=== PATIENT | female | born 1950 | race Caucasian/White ===

== ENCOUNTER 2016-05-09 15:44 | Emergency (ER) | payer MEDICARE ==
[~2016-05-09] VITALS: Ht 157.5 cm; Wt 72.6 kg
[~2016-05-09 15:44] MED LIST: HYDR-2666 PO
--- NOTE | 2016-05-09 16:27 | RAD ---
Indication injury, pain. AP oblique and lateral views of the left ankle were obtained. There is considerable soft tissue swelling. There is a tiny avulsion off the tip of the lateral malleolus. No additional bony finding is seen.
--- NOTE | 2016-05-09 18:30 | PHYS DOC ---
Past Medical History Past Medical History: No Pertinent History Past Surgical History: No Surgical History Additional Past Surgical Histo: bilateral knee surgeries Additional Information: Nonsmoker. Alcohol Use: Rarely Drug Use: None Adult General Chief Complaint Chief Complaint: ANKLE PROBLEM HPI HPI Patient is a 66 year old female who presents with left ankle pain after injury at 1400 today. Patient states that she was cleaning leaves from her pool cover when she slipped and twisted her ankle. She is pain, swelling, and bruising over the lateral malleolus. She denies numbness or tingling. She denies any other injuries, including head injury or loss of consciousness. She has been able to bear some weight since the injury. She took a [place] 10/ at 1500. Her PCP is Dr. Avel Gonzalez. She has seen an orthopedic doctor at [facility]. Review of Systems Review of Systems Constitutional: Denies fever or chills. [] Musculoskeletal: Denies back pain. Reports left ankle pain and swelling. Integument: Denies rash or skin lesions. Reports left ankle bruising. Neurologic: Denies headache, focal weakness or sensory changes. Denies loss of consciousness. Allergies Allergies Allergies Coded Allergies Type Severity Reaction Last Updated Verified No Known Drug Allergies 01/03/16 No Physical Exam Physical Exam Constitutional: Well developed, well nourished, no acute distress, non-toxic appearance. [] HENT: Normocephalic, atraumatic, oropharynx moist. [] Eyes: PERRLA, EOMI, conjunctiva normal, no discharge. [] Skin: Warm, dry, no erythema, no rash. There is moderate ecchymosis and swelling over the left lateral malleolus. Extremities: Left lateral malleolus tenderness, ROM mildly decreased due to pain , moderate left lateral malleolus edema. 2+ DP and PT pulses. Less than 2 second capillary refill in the toes. Light touch sensation intact distally in the toes. There is no tenderness over the base of the fifth metatarsal or proximal fibula. Neurologic: Alert and oriented X 3, normal motor function, normal sensory function, no focal deficits noted. [] Psychologic: Affect normal, judgement normal, mood normal. [] EKG EKG [] Radiology/Procedures Radiology/Procedures REASON: pain and injury PROCEDURE: ANKLE LEFT 3V Indication injury, pain. AP oblique and lateral views of the left ankle were obtained. There is considerable soft tissue swelling. There is a tiny avulsion off the tip of the lateral malleolus. No additional bony finding is seen. Course & Med Decision Making Course & Med Decision Making Pertinent Labs and Imaging studies reviewed. (See chart for details) Patient presents with left ankle pain after injury. On exam, she has tenderness , swelling, and ecchymosis over the left lateral malleolus. X-ray shows a small avulsion fracture at the tip of the lateral malleolus. An Ortho-Glass stirrup splint was applied by fork lift technician. I reexamined the patient after splint application. She remains neurovascularly intact without evidence of compartment syndrome. She has a walker and crutches at home for assistance with ambulation. She is discharged home with prescription for [place]. She is given contact information for orthopedics for follow-up. Return precautions were discussed. She verbalizes understanding and agrees with plan. Dragon Disclaimer Dragon Disclaimer This electronic medical record was generated, in whole or in part, using a voice recognition dictation system. Departure Departure Impression: Primary Impression: Avulsion fracture of lateral malleolus of left fibula Disposition: 01 HOME, SELF-CARE Condition: STABLE Referrals: NICOLE GONZALEZ (PCP) TITO HARMON MD Patient Instructions: Ankle Fracture, [id number], Splint Care, [id number] Additional Instructions: Your x-ray shows a small chip fracture, or break, on the outer side of your left ankle. Please take the prescribed pain medication as directed. Do not drive or operate heavy machinery while taking pain medication. You were placed in a splint to immobilize your ankle. Please leave the splint on until follow-up with an orthopedic doctor. The splint must stay dry in order to keep it shape. Please follow-up with the orthopedic doctor listed below or another orthopedic doctor of your choice in the next 3-4 days. Return to the emergency department if you have any new or concerning symptoms. Scripts Hydrocodone/Apap 5-325 (A[place] 5-325 Tablet)1 Each Tablet1 Tab PO PRN Q6HRS PRN PAIN #20 TAB Prov:WILLIAM RIVERS 05/09/16 Problem Qualifiers Primary Impression: Avulsion fracture of lateral malleolus of left fibula Encounter type: initial encounter Fracture type: closed Qualified Code: S82.62XA - Displaced fracture of lateral malleolus of left fibula, initial encounter for closed fracture WILLIAM RIVERS May 09, 2016 18:30
[2016-05-09 18:40] VITALS: BP 133/63
[2016-05-09] MEDS ORDERED: HYDR-971 PO (18:55)
== END 2016-05-09 19:10 | disposition home or self-care (01) ==
LOC: ER 15:44
DX: S82.62XA Displaced fracture of lateral malleolus of left fibula, initial encounter for closed fracture (principal); X58.XXXA Exposure to other specified factors, initial encounter; Y93.89 Activity, other specified; Y92.89 Other specified places as the place of occurrence of the external cause; Y99.8 Other external cause status
CPT/HCPCS: 29515; 73610; 99284-25